=== PATIENT | male | born 1985 | race Caucasian/White ===

== ENCOUNTER 2020-08-12 21:26 | Emergency (ER) | payer MEDICAID ==
[~2020-08-12] VITALS: Ht 177.8 cm; Wt 65.8 kg
[2020-08-12 21:32] VITALS: BP 139/90
--- NOTE | 2020-08-12 21:37 | NUR ---
PT AMBULATED TO ER BED 5
--- NOTE | 2020-08-12 22:02 | NUR ---
Pt ambulated off unit prior to ED MD coleman and KYLE coleman.
[2020-08-12 22:04] VITALS: BP 139/90
== END 2020-08-12 22:02 | disposition left against medical advice (07) ==
LOC: MED 21:26
DX: S61.511D Laceration without foreign body of right wrist, subsequent encounter (principal); Z53.21 Procedure and treatment not carried out due to patient leaving prior to being seen by health care provider; X58.XXXD Exposure to other specified factors, subsequent encounter